=== PATIENT | male | born 1955 | race Caucasian/White ===

== ENCOUNTER 2019-12-29 20:57 | Emergency (ER) | payer MEDICARE, BC ==
[2019-12-29] MEDS ORDERED: Bupivacaine 0.25% 30 ML SDV INJECT PRN (21:02)
--- NOTE | 2019-12-29 21:16 | EDM.PDOC ---
ED HPI GENERAL MEDICAL PROBLEM - General Chief Complaint: General Stated Complaint: FISH HOOK IN MIDDLE FINGER Time Seen by Provider: 12/29/19 21:00 Source of Information: Reports: Patient History Limitations: Reports: No Limitations - History of Present Illness INITIAL COMMENTS - FREE TEXT/NARRATIVE: [place] got a fishhook in his tip of his left third finger. Patient states he [place] but could not. He has no other complaints at this time He is not diabetic nor does he have any other comorbidities Tetanus is up-to-date as of July this year Onset: Sudden Duration: Minutes: Associated Symptoms: Reports: No Other Symptoms ED ROS GENERAL - Review of Systems Review Of Systems: See Below Constitutional: Denies: Fever, Chills Musculoskeletal: Reports: Other (Left third finger pain 3 out of 10 sharp worse with movement of the hook he denies any loss of sensation numbness or tingling discoloration) Skin: Reports: No Symptoms Neurological: Reports: No Symptoms. Denies: Numbness, Paresthesia, Tingling Hematologic/Lymphatic: Reports: No Symptoms Immunologic: Reports: No Symptoms ED EXAM, GENERAL - Physical Exam Exam: See Below Exam Limited By: No Limitations General Appearance: Alert, WD/WN, No Apparent Distress Extremities: Normal Inspection, Normal Range of Motion, Non-Tender, No Pedal Edema, Normal Capillary Refill, Other (Positive fishhook in the pad of the distal third phalanx patient has normal FDS FDP and extensors positive cap refill he is neurovascular intact with soft touch sensation) Neurological: Alert, Oriented, CN II-XII Intact, Normal Cognition, Normal Gait, No Motor/Sensory Deficits Psychiatric: Normal Affect, Normal Mood Skin Exam: Warm, Dry, Intact, Normal Color, No Rash Course - Vital Signs Text/Narrative:: The area was cleaned and prepped with alcohol digital block was performed with 1 and half cc total fishhook was removed no post complications the area was cleaned afterwards alcohol warm hot soapy water Neosporin was applied with Band- Aid patient was given signs symptoms of infection to watch for with a verbal understanding - Orders/Labs/Meds Orders: Active Orders 24 hr Category Date Time Status Bupivacaine 0.25% [Marcaine 0.25%] Med 12/29/19 21:02 Ordered 30 ml INJECT ASDIRECTED PRN Departure - Departure Time of Disposition: 21:15 Disposition: Home, Self-Care 01 Condition: Good Clinical Impression: Portia injury to finger - Discharge Information *PRESCRIPTION DRUG MONITORING PROGRAM REVIEWED*: No *COPY OF PRESCRIPTION DRUG MONITORING REPORT IN PATIENT SAMIR: No Referrals: Annita Dowling, [Primary Care Provider] - - Problem List & Annotations (1) Portia injury to finger SNOMED Code(s): 82978028 Code(s): S69.90XA - UNSP INJURY OF UNSP WRIST, HAND AND FINGER(S), INIT ENCNTR Status: Acute Current Visit: Yes - My Orders Last 24 Hours: My Active Orders 12/29/19 21:02 Bupivacaine 0.25% [Marcaine 0.25%] 30 ml INJECT ASDIRECTED PRN - Assessment/Plan Last 24 Hours: My Active Orders 12/29/19 21:02 Bupivacaine 0.25% [Marcaine 0.25%] 30 ml INJECT ASDIRECTED PRN
== END 2019-12-29 21:18 | disposition home or self-care (01) ==
LOC: VM.ED 20:57
DX: S60.453A Superficial foreign body of left middle finger, initial encounter (principal); W45.8XXA Other foreign body or object entering through skin, initial encounter
CPT/HCPCS: 64450; 99282-25; 99283-GF; J3490

== ENCOUNTER 2021-11-17 17:32 | Emergency (ER) | payer MEDICARE, BC | END 2021-11-17 18:21 | disposition home or self-care (01) | LOC: VM.ED 17:32 | DX: S61.511A Laceration without foreign body of right wrist, initial encounter (principal); I48.91 Unspecified atrial fibrillation; I25.10 Atherosclerotic heart disease of native coronary artery without angina pectoris; E78.00 Pure hypercholesterolemia, unspecified; I10 Essential (primary) hypertension; J44.9 Chronic obstructive pulmonary disease, unspecified; Z79.82 Long term (current) use of aspirin; Z79.01 Long term (current) use of anticoagulants; Z79.84 Long term (current) use of oral hypoglycemic drugs; W26.8XXA Contact with other sharp object(s), not elsewhere classified, initial encounter; Y99.0 Civilian activity done for income or pay | CPT/HCPCS: 12001; 99282-25 ==